=== PATIENT | male | born 1950 | race Two or more races ===

== ENCOUNTER 2017-08-20 07:33 | Outpatient (CLI) | payer OTHER | END 2017-08-20 09:53 | disposition home or self-care (01) | LOC: RAD 07:33 | DX: J45.998 Other asthma (principal) ==

== ENCOUNTER 2017-09-14 08:09 | Outpatient (CLI) | payer OTHER | END 2017-09-14 08:15 | disposition home or self-care (01) | LOC: SONOGRAMA 08:09 → MAMO-SONO 08:15 | DX: E03.8 Other specified hypothyroidism (principal); E04.2 Nontoxic multinodular goiter ==